=== PATIENT | male | born 1990 | race Caucasian/White ===

== ENCOUNTER 2016-06-07 17:33 | Emergency (ER) | payer MEDICAID | END 2016-06-07 20:39 | disposition home or self-care (01) | LOC: D.ER 17:33 | DX: R20.0 Anesthesia of skin (principal); F17.200 Nicotine dependence, unspecified, uncomplicated ==

== ENCOUNTER 2017-01-28 12:53 | Emergency (ER) | payer MEDICAID | END 2017-01-28 14:38 | disposition home or self-care (01) | LOC: D.ER 12:53 | DX: R07.89 Other chest pain (principal); V09.9XXA Pedestrian injured in unspecified transport accident, initial encounter; Y93.89 Activity, other specified; Y92.410 Unspecified street and highway as the place of occurrence of the external cause; F17.200 Nicotine dependence, unspecified, uncomplicated ==

== ENCOUNTER 2017-05-04 15:30 | Emergency (ER) | payer MEDICAID | END 2017-05-04 17:30 | disposition home or self-care (01) | LOC: D.ER 15:30 | DX: M54.5 Low back pain (principal); M62.830 Muscle spasm of back ==

== ENCOUNTER 2019-12-01 16:02 | Emergency (ER) | payer SELFPAY ==
[~2019-12-01] VITALS: Ht 177.8 cm; Wt 100.0 kg
[2019-12-01 16:23] VITALS: Ht 177.8 cm; Wt 100.0 kg
[2019-12-01 17:10] LABS: BASOPHILS 0.4 % (0-2); HEMATOCRIT 45.7 % (42.0-54.0); HEMOGLOBIN 15.5 g/dL (13.5-17.5); LYMPHOCYTES 17.5 % (15-50); MCH 31.8 pg (26.0-34.0); MCHC 33.9 g/dL (31.0-37.0); MCV 93.8 fL (80.0-100.0); MEAN PLATELET VOLUME 8.9 fL (7.4-10.4); MONOCYTES 10.9 % (2-11); NEUTROPHILS 68.2 % (40-80); PLATELET COUNT 319 10x3/uL (130-400); RBC 4.87 10x6/uL (4.20-6.10); RDW 12.6 % (11.5-14.5)
[2019-12-01 17:11] LABS: BILIRUBIN NEGATIVE (NEGATIVE); GLUCOSE NEGATIVE (NEGATIVE); KETONE NEGATIVE (NEGATIVE); NITRITE NEGATIVE (NEGATIVE); SPECIFIC GRAVITY 1.015 (1.005-1.020); UROBILINOGEN NORMAL (NORMAL)
[2019-12-01 17:13] LABS: EPITHELIAL CELLS 0-5 /hpf (0-5); RED CELLS - URINE RARE /hpf (0-5); WHITE CELLS - URINE OCC /hpf (NEGATIVE)
[2019-12-01 17:14] LABS: BACTERIA NONE SEEN /hpf (NEGATIVE); CALC OSMOLALITY 272 mosm/kg (275-300); CALCIUM 8.4 mg/dL (8.5-10.1); CARBON DIOXIDE 28.6 mmol/L (21.0-32.0); CHLORIDE - SERUM 102 mmol/L (98-107); CREATININE - SERUM 1.1 mg/dL (0.6-1.3); GLUCOSE 99 mg/dL (74-106); POTASSIUM - SERUM 3.9 mmol/L (3.5-5.1); SODIUM 137 mmol/L (136-145); UREA NITROGEN 10 mg/dL (7-18); eGFR NON AFRICAN AMERICAN 83 mL/min (90-120)
[2019-12-01 17:15] LABS: UDS - AMPHET NEGATIVE QUAL (NEGATIVE); UDS - BARB NEGATIVE QUAL (NEGATIVE); UDS - BENZO NEGATIVE QUAL (NEGATIVE); UDS - COCAINE NEGATIVE QUAL (NEGATIVE); UDS - OPIATE NEGATIVE QUAL (NEGATIVE); UDS - PCP NEGATIVE QUAL (NEGATIVE); UDS - THC POSITIVE QUAL (NEGATIVE)
[2019-12-01 17:20] LABS: ALBUMIN 3.5 g/dL (3.4-5.0); ALKALINE PHOSPHATASE 56 U/L (30-120); ALT (SGPT) 44 U/L (10-68); BILIRUBIN - TOTAL 1.56 mg/dL (0.2-1.3); MAGNESIUM - SERUM 2.1 mg/dL (1.8-2.4); PROTEIN - SERUM 7.3 g/dL (6.4-8.2)
--- NOTE | 2019-12-01 18:54 | NUR ---
DR. MEADOWS NOTIFIED AND REVIEWED PATIENT'S BEHAVIOR AND ASSESSMENT RESULTS. ORDERED A SITTER AT BEDSIDE. NOTIFIED CHARGE NURSE AND ATTENDING IN REGARDS TO ASSESSMENT FINDINGS. RESOURCES GIVVEN TO PATIENT AND SAFETY PLLAN INITIATED.
[2019-12-02 01:39] VITALS: BP 132/84
== END 2019-12-02 03:08 ==
LOC: D.ER 16:02
PROVIDERS: Family Medicine
DX: R45.851 Suicidal ideations (principal); N50.3 Cyst of epididymis; N43.3 Hydrocele, unspecified; L92.8 Other granulomatous disorders of the skin and subcutaneous tissue; J45.909 Unspecified asthma, uncomplicated; Z72.0 Tobacco use